=== PATIENT | female | born 1970 | race Caucasian/White ===

== ENCOUNTER 2019-09-16 16:52 | Emergency (ER) | payer OTHER, SELFPAY ==
[2019-09-16 17:05] VITALS: BP 141/92; PULSE 96; RESP 16; TEMP 37.6; O2SAT 100
--- NOTE | 2019-09-16 17:33 | ED.GENADULT ---
HPI - General Adult General Chief complaint: Upper Respiratory Infection Stated complaint: right side of throat sore Time Seen by Provider: 09/16/19 17:33 Source: patient Mode of arrival: ambulatory Limitations: no limitations History of Present Illness HPI narrative: 49-year-old female patient presents to the [facility] with complaints of sore throat for the past 2 days. Denies any fevers that she is aware of. Patient states it was really hurting her to swallow this morning and she has had history of strep throat in the past when can get checked out. Related Data Home Medications Medication Instructions Recorded Confirmed lisinopril 5 mg PO DAILY 09/16/19 09/16/19 loratadine [Claritin] 10 mg PO DAILY 09/16/19 09/16/19 montelukast [Singulair] 10 mg PO HS 09/16/19 09/16/19 Allergies Allergy/AdvReac Type Severity Reaction Status Date / Time No Known Allergies Allergy Verified 09/16/19 17:25 Review of Systems Review of Systems: Narrative: CONSTITUTIONAL: Denies fever, chills, or sweats. EYES: Denies visual changes, redness, or discharge. ENT: Denies rhinorrhea, congestion, positive sore throat, denies otalgia. CARDIOVASCULAR: Denies chest pain, palpitations, or edema. RESPIRATORY: Denies cough or dyspnea. GASTROINTESTINAL: Denies abdominal pain, nausea, vomiting, or diarrhea. GENITOURINARY: Denies dysuria or hematuria. SKIN: Denies rash or itching. MUSCULOSKELETAL: Denies back pain, joint pain, or myalgia. NEUROLOGIC: Denies headache, numbness, or weakness. PSYCHIATRIC: Denies anxiety or depression. PMFSH Comments At the time of my signature I agree with nursing past medical history, surgical, social, and family history. There is no relevant family history pertinent to the presenting complaint. Exam Narrative: Exam Narrative: GENERAL: Well-appearing, well-nourished, and in no acute distress. HEAD: Normocephalic, atraumatic. EYES: PERRLA and EOMI. ENT: Nares clear, no rhinorrhea or epistaxis. Mucous membranes moist. Posterior pharynx with slight erythema but no tonsil enlargement no exudates or lesions present. NECK: Supple. No lymphadenopathy CHEST: Clear to auscultation. No respiratory distress. HEART: Regular rate and rhythm. No murmur heard. Normal peripheral pulses. ABDOMEN: Soft, nontender, nondistended, normal active bowel sounds. EXTREMITIES: Normal range of motion. No edema. SKIN: Warm, dry, no rash. NEURO: No focal deficits. Alert and oriented x3. Course Vital Signs Vital signs: Vital Signs Temperature 37.6 C 09/16/19 17:05 Pulse Rate 96 09/16/19 17:05 Respiratory Rate 16 09/16/19 17:05 Blood Pressure 141/92 H 09/16/19 17:05 Pulse Oximetry 100 09/16/19 17:05 Temperature 37.6 C 09/16/19 17:05 Pulse Rate 96 09/16/19 17:05 Respiratory Rate 16 09/16/19 17:05 Blood Pressure 141/92 H 09/16/19 17:05 Pulse Oximetry 100 09/16/19 17:05 Vital signs reviewed. The patient has been informed that they may have pre-hypertension or Hypertension based on a BP reading in the department. I recommend that the patient call the primary care provider listed on their discharge instructions or a physician of their choice this week to arrange follow up for further evaluation of possible pre-hypertension or Hypertension Medical Decision Making Differential Diagnosis Differential Diagnosis: Differential diagnosis: Viral pharyngitis, pharyngitis, group A strep, infectious mononucleosis, gonococcal pharyngitis, exudative pharyngitis, oral candidiasis. Chronic allergies, postnasal drip, GERD, abscess formation, but glottitis, retropharyngeal abscess formation, or airway obstruction. Discussed with patient that she is positive today for strep throat. Discussed with her we will discharge her home with an antibiotic for the strep throat. Discussed with her that we could also send her for COVID-19 testing for sore throat is a symptom of the COVID 19 syndrome. Patient states that she can get free
== END 2019-09-16 17:42 | disposition home or self-care (01) ==
PROVIDERS: Emergency Provider Nurse Practitioner Family; PCP Nurse Practitioner Adult Health
DX: J02.0 Streptococcal pharyngitis (principal); I10 Essential (primary) hypertension
CPT/HCPCS: 87880; 99213; G0463

== ENCOUNTER → 2022-10-01 10:31 | Outpatient (CLI) | payer BC, SELFPAY ==
--- NOTE | ~2022-10-01 | XR_ITS ---
EXAMINATION: XR elbow RT min 3V DATE: 10/01/2022 11:05 INDICATION: Right elbow injury and pain. TECHNIQUE: 4 views of right elbow were obtained. COMPARISON: None. FINDINGS: There is a comminuted fracture of the articular surface of capitellum with displaced fractu re fragments in the elbow joint and elbow joint effusion. The ulnohumeral joint is normal. IMPRESSION: 1. Comminuted fracture of the articular surface of capitellum. Reviewed, dictated and finalized at location A.
--- NOTE | ~2022-10-01 | XR_ITS ---
EXAMINATION: XR shoulder RT min 2V DATE: 10/01/2022 11:05 INDICATION: Right shoulder injury. TECHNIQUE: 4 views of right shoulder were obtained. COMPARISON: None. FINDINGS: Bone alignment is normal. No fracture. There is mild osteoarthritis of glenohumeral joint a nd severe osteoarthritis of acromioclavicular joint. IMPRESSION: 1. Polyarticular osteoarthritis. Reviewed, dictated and finalized at location A.
--- NOTE | ~2022-10-01 | XR_ITS ---
EXAMINATION: XR forearm RT 2V DATE: 10/01/2022 11:05 INDICATION: Right elbow pain and injury. TECHNIQUE: 2 views of right forearm were obtained. COMPARISON: None. FINDINGS: There is a displaced comminuted fracture of the articular surface of capitellum. There is n ormal alignment at the wrist. There is an elbow joint effusion. IMPRESSION: 1. Displaced comminuted fracture of the articular surface of capitellum. Reviewed, dictated and finalized at location A.
== END ==
PROVIDERS: PCP Family Medicine; Visit Provider Family Medicine
DX: S62.101A Fracture of unspecified carpal bone, right wrist, initial encounter for closed fracture (principal); X58.XXXA Exposure to other specified factors, initial encounter; M19.021 Primary osteoarthritis, right elbow
CPT/HCPCS: 73030; 73080; 73090

== ENCOUNTER 2022-10-09 09:59 | Outpatient (CLI) | payer BC, SELFPAY ==
--- NOTE | ~2022-10-09 | CT_ITS ---
EXAMINATION: CT elbow RT wo con DATE: 10/09/2022 10:13 INDICATION: Closed fracture of right elbow. TECHNIQUE: Computed tomography (CT) of the right elbow was performed without intravenous contrast. Au tomated exposure control and iterative reconstruction technique were employed. The dose-length produc t was 113.09 mGy-cm. COMPARISON: Right elbow radiograph 10/01/2022 FINDINGS: There is a displaced shear fracture of the articular surface of capitellum with 12 mm artic ular surface fracture fragment in the anterior elbow joint. There is a fracture of ulna involving the posterior rim of the distal radioulnar joint with 4 mm displacement. There is mild elbow joint osteo arthritis. There is a small elbow joint effusion. IMPRESSION: 1. Displaced shear fracture of the articular surface of capitellum. 2. Fracture of proximal ulna involving the posterior rim of the distal radioulnar joint. Reviewed, dictated and finalized at location A. IMPRESSION: 1. Displaced shear fracture of the articular surface of capitellum. 2. Fracture of proximal ulna involving the posterior rim of the distal radiouln ar joint.
== END 2022-10-09 10:00 ==
PROVIDERS: PCP Family Medicine
DX: S42.401D Unspecified fracture of lower end of right humerus, subsequent encounter for fracture with routine healing (principal); X58.XXXD Exposure to other specified factors, subsequent encounter
CPT/HCPCS: 73200

== ENCOUNTER 2023-08-05 14:41 | Outpatient (CLI) | payer BC, SELFPAY ==
--- NOTE | ~2023-08-05 | XR_ITS ---
EXAMINATION: XR chest 2V Exam Date/Time: 08/05/2023 14:53 CDT HISTORY: ACUTE BRONCHITIS Comparison: [facility] chest 12/14/2018, report only. RESULT: Lines, tubes, and devices: None. Lungs and pleura: Clear. Cardiomediastinal silhouette: Stable. Other: No acute osseous or upper abdominal finding. IMPRESSION: No acute cardiopulmonary process. Reviewed, dictated and finalized at location K.
== END 2023-08-05 14:42 ==
DX: J20.9 Acute bronchitis, unspecified (principal)
CPT/HCPCS: 71046